=== PATIENT | female | born 1995 | race African-American/Black ===

== ENCOUNTER 2016-12-16 16:09 | Emergency (ER) | payer SELFPAY ==
--- NOTE | 2016-12-16 16:48 | ER Document Report ---
ED Medical Screen (RME) - General Chief Complaint: Abdominal Pain Stated Complaint: RIGHT SIDE,ABDOMINAL PAIN,NAUSEA Time Seen by Provider: 12/16/16 16:47 Notes: Patient reports 1 week of constant right lower and right flank pain. She has had nausea. She has had decreased appetite. She is also been constipated. She states she feels dehydrated. No vaginal discharge or bleeding. She states she is unsure if she is . TRAVEL OUTSIDE OF THE [place] IN LAST 30 DAYS: No - Related Data Allergies/Adverse Reactions: No Known Allergies Allergy (Unverified 12/16/16 16:30) Past Medical History - Social History Frequency of alcohol use: None Drug Abuse: None Neurological Medical History: Reports: Hx Seizures Renal/ Medical History: Denies: Hx Peritoneal Dialysis Physical Exam - Vital signs Vitals: Temp Pulse Resp BP Pulse Ox 98.1 F 96 16 141/84 H 100 12/16/16 16:30 12/16/16 16:30 12/16/16 16:30 12/16/16 16:30 12/16/16 16:30 Course - Vital Signs Vital signs: Temp Pulse Resp BP Pulse Ox 98.1 F 96 16 141/84 H 100 12/16/16 16:30 12/16/16 16:30 12/16/16 16:30 12/16/16 16:30 12/16/16 16:30
[2016-12-16 17:18] LABS: ABSOLUTE MONOCYTES (AUTO) 0.7 10^3/uL (0.1-1.4); ABSOLUTE NEUT (AUTO) 6.5 10^3/uL (1.7-8.2); BASOPHILS % (AUTO) 0.6 % (0-2); EOSINOPHILS % (AUTO) 0.2 % (0-6); HEMATOCRIT 35.5 % (36.0-47.0); HGB HCT DIFFERENCE 0.5; LYMPHOCYTES % (AUTO) 12.1 % (13-45); MEAN CORPUSCULAR HEMOGLOBIN 28.3 pg (27.0-33.4); MEAN CORPUSCULAR HGB CONC 33.7 g/dL (32.0-36.0); MEAN CORPUSCULAR VOLUME 84 fl (80-97); MONOCYTES % (AUTO) 8.5 % (3-13); RED BLOOD COUNT 4.22 10^6/uL (3.72-5.28); RED CELL DISTRIBUTION WIDTH 13.3 % (11.5-14.0); SEGMENTED NEUTROPHILS % (AUTO) 78.6 % (42-78); WHITE BLOOD COUNT 8.2 10^3/uL (4.0-10.5)
[2016-12-16 17:27] LABS: APPEARANCE,URINE SLIGHTLY-CLOUDY; BILIRUBIN,URINE NEGATIVE (NEGATIVE); GLUCOSE, URINE NEGATIVE (NEGATIVE); KETONES,URINE 80 mg/dL (NEGATIVE); LEUKOCYTE ESTERASE,URINE SMALL (NEGATIVE); NITRITE,URINE NEGATIVE (NEGATIVE); PROTEIN,URINE 30 mg/dL (NEGATIVE); URINE SPECIFIC GRAVITY 1.024
[2016-12-16 17:41] LABS: ALANINE AMINOTRANSFERASE 20 U/L (9-52); ALBUMIN 4.7 g/dL (3.5-5.0); ALKALINE PHOSPHATASE 64 U/L (38-126); ANION GAP 13 (5-19); ASPARTATE AMINO TRANSFERASE 16 U/L (14-36); BILIRUBIN,DIRECT 0.4 mg/dL (0.0-0.4); BILIRUBIN,TOTAL 0.6 mg/dL (0.2-1.3); BLOOD UREA NITROGEN 10 mg/dL (7-20); CALCIUM 10.3 mg/dL (8.4-10.2); CARBON DIOXIDE 19 mmol/L (22-30); CHLORIDE 107 mmol/L (98-107); CREATININE RESULT 1.16 mg/dL (0.52-1.25); GLUCOSE 89 mg/dL (75-110); POTASSIUM 3.9 mmol/L (3.6-5.0); SODIUM 139.4 mmol/L (137-145); TOTAL PROTEIN 7.9 g/dL (6.3-8.2)
[2016-12-16] MEDS ORDERED: KETOROLAC TROMETHAMINE INJ/PF 30 MG/1 ML SDV IV ONE (19:16)
[2016-12-16] MEDS ORDERED: ONDANSETRON HCL INJ/PF 4 MG/2 ML SDV IV ONE (19:16)
[2016-12-16] MEDS ORDERED: NORMAL SALINE 1000 ML 1,000 ML IV ONE (19:16)
--- NOTE | 2016-12-16 19:21 | ER Document Report ---
ED GI/ - General Chief Complaint: Abdominal Pain Stated Complaint: RIGHT SIDE,ABDOMINAL PAIN,NAUSEA Time Seen by Provider: 12/16/16 16:47 TRAVEL OUTSIDE OF THE [place] IN LAST 30 DAYS: No - HPI Notes: 12/16/16 19:18 21-year-old female with no significant prior medical history presents with 1 week of moderate right-sided abdominal pain. It appears to be mostly in the right flank and right mid abdomen but radiates to the right lower abdomen as well as to the right back region. No fever. She has had nausea and vomiting without hematemesis. No diarrhea but thinks she feels constipated. Denies dysuria but has increased pain in the right lower abdomen when she urinates. No hematuria noted. No alleviating factors. Denies rash. - Related Data Allergies/Adverse Reactions: No Known Allergies Allergy (Unverified 12/16/16 16:30) Past Medical History - Social History Smoking Status: Never Smoker Frequency of alcohol use: None Drug Abuse: None Family History: Other Patient has suicidal ideation: No Patient has homicidal ideation: No Neurological Medical History: Reports: Hx Seizures Renal/ Medical History: Denies: Hx Peritoneal Dialysis Review of Systems - Review of Systems -: Yes All other systems reviewed and negative Physical Exam - Vital signs Vitals: Temp Pulse Resp BP Pulse Ox 98.1 F 96 16 141/84 H 100 12/16/16 16:30 12/16/16 16:30 12/16/16 16:30 12/16/16 16:30 12/16/16 16:30 Interpretation: Hypertensive - Notes Notes: GENERAL: VS as per nursing doc. Well-appearing, well-nourished and in no acute distress. HEAD: Atraumatic, normocephalic. EYES: Pupils equal round and reactive to light, extraocular movements intact, sclera anicteric, no conjunctival injection or discharge. ENT: Nares patent, oropharynx clear without exudates, slightly dry mucous membranes. NECK: Normal range of motion, supple without lymphadenopathy. LUNGS: Breath sounds clear to auscultation bilaterally and equal. No wheezes rales or rhonchi. HEART: Regular rate and rhythm without murmurs. ABDOMEN: Soft, tender diffusely in the right lower quadrant to right flank and right upper quadrant, normoactive bowel sounds. No guarding, no rebound. No masses appreciated. No [place] sign. BACK: Mild to moderate CVA tenderness. EXTREMITIES: Normal range of motion, no calf tenderness, no edema. NEUROLOGICAL: Normal speech. Normal sensory and motor exams. No gross cerebellar abnormalities. PSYCH: Normal mood, normal affect. SKIN: Warm, dry, normal turgor, no shingles rash noted. Course - Re-evaluation Re-evalutation: 12/16/16 20:52 Pain is improved here. CT was obtained to help rule out appendicitis and other intra-abdominal etiology but shows what appears to be a ureteral stone but the hydronephrosis and hydroureter. I discussed the diagnosis at length and follow- up needs as well as emergent return to ER signs including fever. We will cover her for infection while we await culture. She is going back to [place] in the next couple of days so she will be provided a disc and follow-up instructions which she understands including urology follow-up. - Vital Signs Vital signs: Temp Pulse Resp BP Pulse Ox 98.6 F 95 18 124/85 100 12/16/16 20:54 12/16/16 20:54 12/16/16 20:54 12/16/16 20:54 12/16/16 20:54 - Laboratory Result Diagrams: 12/16/16 17:00 12/16/16 17:00 Laboratory results interpreted by me: 12/16/16 12/16/16 12/16/16 17:00 17:00 17:00 Hct 35.5 L Seg Neutrophils % 78.6 H Lymphocytes % 12.1 L Carbon Dioxide 19 L Est GFR (Non-Af Amer) 58 L Calcium 10.3 H Urine Protein 30 H Urine Ketones 80 H Urine Blood LARGE H Urine Urobilinogen 2.0 H Ur Leukocyte Esterase SMALL H Discharge - Discharge Clinical Impression: Abdominal pain, Calculus of ureter Condition: Good Disposition: HOME, SELF-CARE Instructions: Abdominal Pain ([facility]), Oral Narcotic Medication ([facility]) Additional Instructions: Return for worsening, fever or other concern. Use ibuprofen or Aleve initially for discomfort but may use the prescribed pain medication as well. Push non- caffeinated fluids and stay hydrated. Ensure you get follow-up as discussed. Ensure you finish all of the antibiotics. Prescriptions: Hydrocodone/Acetaminophen [[place] 5-325 mg Tablet] 1 tab PO Q4HP PRN #14 tablet PRN Reason: For Pain Ciprofloxacin HCl [Cipro 500 mg Tablet] 500 mg PO BID #14 tablet Promethazine HCl [Phenergan 25 mg Tablet] 1 tab PO Q6H PRN #15 tablet PRN Reason: For Nausea/Vomiting Forms: Elevated Blood Pressure
--- NOTE | 2016-12-16 20:04 | RADIOLOGY REPORT (SQ) ---
EXAM DESCRIPTION: CT ABD/PELVIS NO ORAL OR IV COMPLETED DATE/TIME: 12/16/2016 7:41 pm REASON FOR STUDY: Right Flank and RLQ Pain COMPARISON: None. TECHNIQUE: CT scan of the abdomen and pelvis performed without intravenous or oral contrast. Images reviewed with lung, soft tissue, and bone windows. Reconstructed coronal and sagittal MPR images revi ewed. All images stored on PACS. All CT scanners at this facility use dose modulation, iterative reconstruction, and/or weight based d osing when appropriate to reduce radiation dose to as low as reasonably achievable (ALARA). [facility]: Dose Right [facility]: CareDose [facility]: Dose Right [facility]: Teradose 4D [facility]: Smart Clip RADIATION DOSE: Up-to-date CT equipment and radiation dose reduction techniques were employed. CTDIv ol: 12.5 mGy. DLP: 647 mGy-cm.mGy. LIMITATIONS: None. FINDINGS: LOWER CHEST: No significant findings. No nodules or infiltrates. NON-CONTRASTED LIVER, SPLEEN, ADRENALS: Evaluation limited by lack of IV contrast. No identified sign ificant masses. PANCREAS: No masses. No peripancreatic inflammatory changes. GALLBLADDER: No identified stones by CT criteria. No inflammatory changes to suggest cholecystitis. RIGHT KIDNEY AND URETER: No suspicious masses. Assessment limited by lack of IV contrast. There are small nonobstructing right renal calculi. There is dilatation of the right collecting system and r ight ureter. There are 2 small calcifications in the pelvis the largest measures 0.8 mm and could re present phleboliths or distal right ureteral stone. LEFT KIDNEY AND URETER: No suspicious masses. Assessment limited by lack of IV contrast. No signifi cant calcifications. No hydronephrosis or hydroureter. AORTA AND RETROPERITONEUM: No aneurysm. No retroperitoneal masses or adenopathy. BOWEL AND PERITONEAL CAVITY: No obvious masses or inflammatory changes. No free fluid. APPENDIX: Normal. PELVIS, BLADDER, AND ABDOMINAL WALL:No abnormal masses. No free fluid. Bladder normal. BONES: No significant findings. OTHER: No other significant finding. IMPRESSION: Right-sided hydronephrosis and hydroureter. There are 2 small calcifications in the pel vis the small S measure approximate 1 mm in size and probably represents a ureteral stone. The 2nd s tone measures approximately 3 mm but more than likely represents phlebolith. TECHNICAL DOCUMENTATION: JOB ID: [id number] Quality ID # [id number]: Final reports with documentation of one or more dose reduction techniques (e.g., Au tomated exposure control, adjustment of the mA and/or kV according to patient size, use of iterative reconstruction technique) 2010 [email or web address]- All Rights Reserved
[2016-12-16] MEDS ORDERED: CEFTRIAXONE INJ 1000 MG VIAL IV ONE (20:45)
[2016-12-16] MEDS ORDERED: CEFTRIAXONE 1 GM/D5W RTU 1 GM/50 ML RTUPB IV ONE (21:06)
[2016-12-16 21:17] VITALS: BP 124/85
== END 2016-12-16 22:15 | disposition home or self-care (01) ==
LOC: ER 16:09
DX: N13.2 Hydronephrosis with renal and ureteral calculous obstruction (principal); R11.2 Nausea with vomiting, unspecified
CPT/HCPCS: 99284; 96375; 96365; 36415; 87040; 87086; 85025; 81025; 80053; 81001; 74176; J1885; J2405; J7030; J0696